=== PATIENT | female | born 1985 | race Caucasian/White ===

== ENCOUNTER → 2023-10-11 08:54 | Outpatient (CLI) | payer OTHER, SELFPAY ==
--- NOTE | 2023-10-11 | DI.MRI.S_ITS ---
PROCEDURE: MR LUMBAR SPINE WO CON INDICATIONS: LUMBAR SCIATICA TECHNIQUE: Noncontrast sagittal T1 spin echo and T2 fast echo, sagittal STIR, and T2 fast spin echo through the lumbar spine. In cases with scoliosis, additional coronal T2 fast spin echo may be performed. COMPARISON: None. FINDINGS: Image quality: Excellent. Alignment and Curvature: There is normal bony alignment. Bone Marrow: Marrow is of normal overall signal. No acute vertebral body compression fractures. Spinal Cord: Conus medullaris terminates at the L1 level. Visualized cord demonstrates normal signal and size. Paraspinous Soft Tissues: No paravertebral masses. T11-12: Mild, broad-based posterior disc bulge, slight height loss, and desiccation at this level slightly indents on the anterior CSF. T12-L1: Normal appearance. L1-L2: Normal appearance. L2-L3: Very minor circumferential disc bulge without height loss or desiccation. L3-L4: Minor circumferential disc bulge with slight posterior disc height loss without desiccation. L4-L5: Normal appearance. L5-S1: Mild disc desiccation and mild broad-based posterior disc bulge. IMPRESSION: No focal disc bulge to cause clinically significant central canal or foraminal stenosis. No significant facet arthropathy. Dictated by: Marlene Villa M.D. on 10/11/2023 at 13:11 Approved by: Marlene Villa M.D. on 10/11/2023 at 13:18
== END ==
LOC: MRI 08:56
PROVIDERS: Referring Provider Physical Medicine & Rehabilitation Pain Medicine; Visit Provider Physical Medicine & Rehabilitation Pain Medicine
DX: M16.11 Unilateral primary osteoarthritis, right hip (principal); M51.34 Other intervertebral disc degeneration, thoracic region; M51.37 Other intervertebral disc degeneration, lumbosacral region
CPT/HCPCS: 72148

== ENCOUNTER 2024-02-28 13:31 | Emergency (ER) | payer OTHER, SELFPAY ==
[2024-02-28 13:33] VITALS: BP 140/81; PULSE 82; RESP 18; TEMP 36.4; O2SAT 100; BMI 28.1
--- NOTE | 2024-02-28 13:37 | DI.RAD.S_ITS ---
PROCEDURE: XR SHOULDER RT MIN 2V INDICATIONS: shoulder pain TECHNIQUE: 3 views of the shoulder were acquired. COMPARISON: None. FINDINGS: Bones: No fractures or dislocations. Normal alignment. Acromioclavicular and coracoclavicular intervals are maintained. No suspicious bony lesions. Visualized ribs appear intact. Soft tissues: No suspicious soft tissue calcifications. IMPRESSION: No acute bony abnormality. No significant degenerative changes. Dictated by: Gian Garrido M.D. on 02/28/2024 at 14:31 Approved by: Gian Garrido M.D. on 02/28/2024 at 14:31
--- NOTE | 2024-02-28 13:53 | ED_ITS ---
HPI - Extremity Problem <Serafin Shetty PA-C - Last Filed: 02/28/24 14:36> General Chief complaint: Extremity Problem,Nontraumatic Stated complaint: right shoulder pain Time Seen by Provider: 02/28/24 13:35 Source: patient Mode of arrival: Ambulatory History of Present Illness HPI Narrative: This is a 39-year-old female presents emergency department due to Right trapezius pain for the last 4 days. She states that she has a history of this and has a pinched nerve. She states that 4 days ago she woke up from sleeping and noticed the right trapezius pain which radiates into her right upper extremity as well as partially upper neck. She denies any falls or trauma to the area but does state that she works out regularly for her jobs in the . She reports some paresthesias going down her right upper extremity as well. Denies any slurred speech, nausea, vomiting, facial drooping, muscle of the conscious, or any other concerning signs or symptoms. Related Data Previous Rx's Medication Instructions Recorded cyclobenzaprine 10 mg tablet 10 mg PO TID PRN muscle spasm #30 02/28/24 tabs methylprednisolone 4 mg tablets in See Rx Instructions PO .COMPLEX 02/28/24 a dose pack (Medrol (Demarcus)) #21 ea Allergies Allergy/AdvReac Type Severity Reaction Status Date / Time No Known Drug Allergies Allergy Verified 02/28/24 13:33 Review of Systems <Serafin Shetty PA-C - Last Filed: 02/28/24 14:36> Review of Systems Narrative: GENERAL: Denies chills, fatigue, malaise, fever, sweats. HEENT: Denies sinus pain, ear pain, sore throat, difficulty swallowing, dizziness. RESPIRATORY: Denies dyspnea, cough, wheezing, hemoptysis, sputum. CARDIOVASCULAR: Denies chest pain, palpitations, orthopnea, edema, GASTROINTESTINAL: Denies nausea, vomiting, abdominal pain, diarrhea, constipati on, melena. : Denies dysuria, frequency, incontinence, hematuria, urinary retention. MUSCULOSKELETAL: Reports right shoulder pain SKIN: Denies rash, skin lesions, or other NEUROLOGIC: Denies weakness, headache, numbness, change in speech, confusion, seizures, incoordination. PSYCHIATRIC: No concerning psychosocial issues. 12 point review of systems is negative except for those stated above Patient History <Serafin Shetty PA-C - Last Filed: 02/28/24 14:36> Social History Smoking Status: Never smoker Smoking Status: Never smoker Substance Use Type: does not use Exam <Serafin Shetty PA-C - Last Filed: 02/28/24 14:36> Narrative Exam Narrative: GENERAL: Well-developed patient, in mild distress. HEAD: Atraumatic. Normocephalic. EYES: Pupils equal round and reactive. Extraocular motions intact. No scleral icterus. No injection or drainage. ENT: Nose without bleeding, purulent drainage. Throat without erythema, tonsillar hypertrophy or exudate. Airway patent. NECK: Trachea midline. Non tender EXTREMITIES: tenderness to palpation to the right trapezius area, increased pain with active range of motion of the shoulder NEURO: AOx3. cranial nerves 2-12 intact SKIN: No rash or erythema of visible areas Initial Vital Signs Initial Vital Signs: Vital Signs Temperature 97.5 F L 02/28/24 13:33 Pulse Rate 82 02/28/24 13:33 Respiratory Rate 18 02/28/24 13:33 Blood Pressure 140/81 02/28/24 13:33 Pulse Oximetry 100 02/28/24 13:33 Oxygen Delivery Method Room Air 02/28/24 13:33 <Matthew Myers MD - Last Filed: 02/28/24 16:09> Initial Vital Signs Initial Vital Signs: Vital Signs Temperature 97.5 F L 02/28/24 13:33 Pulse Rate 82 02/28/24 13:33 Respiratory Rate 18 02/28/24 13:33 Blood Pressure 140/81 02/28/24 13:33 Pulse Oximetry 100 02/28/24 13:33 Oxygen Delivery Method Room Air 02/28/24 13:33 Course <Serafin Shetty PA-C - Last Filed: 02/28/24 14:36> Orders Ordered: ED Orders 02/28/24 13:37 XR shoulder RT min 2V Stat Discontinued Medications Ketorolac Tromethamine (Ketorolac 30 Mg/Ml Vial) 15 mg IM NOW ONE Stop: 02/28/24 14:03 Last Admin: 02/28/24 14:12 Dose: 15 mg Documented By: BS Vital Signs Vital signs: Vital Signs - 8 hr 02/28/24 13:33 02/28/24 14:43 Temperature 97.5 F L 98 F Pulse Rate 82 67 Respiratory Rate 18 14 Blood Pressure 140/81 119/80 Pulse Oximetry 100 100 Oxygen Delivery Method Room Air Room Air <Matthew Myers MD - Last Filed: 02/28/24 16:09> Orders Ordered: ED Orders 02/28/24 13:37 XR shoulder RT min 2V Stat Discontinued Medications Ketorolac Tromethamine (Ketorolac 30 Mg/Ml Vial) 15 mg IM NOW ONE Stop: 02/28/24 14:03 Last Admin: 02/28/24 14:12 Dose: 15 mg Documented By: ABDIAS Vital Signs Vital signs: Vital Signs - 8 hr 02/28/24 13:33 02/28/24 14:43 Temperature 97.5 F L 98 F Pulse Rate 82 67 Respiratory Rate 18 14 Blood Pressure 140/81 119/80 Pulse Oximetry 100 100 Oxygen Delivery Method Room Air Room Air MDM - Extremity (Nontraumatic) <Serafin Shetty PA-C - Last Filed: 02/28/24 14:36> Imaging Data Extremity x-ray #1: Radiologist's Impression: [place] [address] XRay Report Signed Patient: Romana Al MR#: [id number] : 1985 Acct:[id number] Age/Sex: 39 / F Date of Service: 02/28/24 Loc: ED Accession Number: [id number] Procedure: XR shoulder RT min 2V Ordering Provider: Serafin Shetty PA-C PROCEDURE: XR SHOULDER RT MIN 2V INDICATIONS: shoulder pain TECHNIQUE: 3 views of the shoulder were acquired. COMPARISON: None. FINDINGS: Bones: No fractures or dislocations. Normal alignment. Acromioclavicular and coracoclavicular intervals are maintained. No suspicious bony lesions. Visualized ribs appear intact. Soft tissues: No suspicious soft tissue calcifications. IMPRESSION: No acute bony abnormality. No significant degenerative changes. Dictated by: Gian Garrido M.D. on 02/28/2024 at 14:31 Approved by: Gian Garrido M.D. on 02/28/2024 at 14:31 [facility] Narrative Medical decision making narrative: ED course: this is a 39-year-old female presents to the emergency department due to suspected right trapezius strain. X-ray unremarkable. Patient was treated with Toradol, muscle relaxants, and Medrol Dosepak. recommended follow up with primary care provider for possible advanced imaging and further treatment if symptoms continue. no significant weakness noted on exam that would necessitate any kind of emergent MRI. CC: Right trapezius pain Complicating co-morbidities: None Data collected from: Previous notes Medical records reviewed: Patient was not been to this emergency department the past. No other medical records to review. Differential considered, but not limited to: trapezius strain, cervical spondylosis, soft tissue injury, fracture Exam documented above, pertinent findings include: some pain with palpation with active range of motion of the shoulder, no significant weakness noted on exam Lab Test results independently reviewed as above. Pertinent findings: none obtained Imaging studies independently reviewed: right shoulder x-ray negative for fractures Scores Used: None MIPS Elements: None Consultations: None Treatments: IM Toradol Re-evaluations: none Discussion: Discussed plan with the patient was comfortable with the plan Diagnosis: right shoulder strain Disposition: see below, along with detailed discharge instructions that have been reviewed with patient as well as indications for ED re-evaluation and additional outpatient follow up Discharge Plan Departure Patient Disposition: Home Clinical Impression: Right shoulder strain Activity Restrictions/Additional Instructions: Thank you for coming to the [facility] Emergency Department today. the Toradol as well as muscle relaxants and steroids should help with the pain. You may speak with the primary care provider outpatient for possible further advanced imaging if the pain is to continue. I also recommend light activity and movement as well as massage to help with your symptoms. Please return to the emergency department if you develop any Facial drooping, slurred speech, inability to use your right arm due to weakness. or any other concerning signs or symptoms. I hope you feel better soon. Please follow up with your primary care provider within a week if your symptoms continue. If you do not have a primary care provider please contact the [facility] Resource line at [phone]. They will ask some questions about your medical history and help you get set up with a provider in the community. Prescriptions: New methylprednisolone [Medrol (Demarcus)] 4 mg tablets,dose pack See Rx Instructions .ROUTE .COMPLEX Qty: 21 0RF Rx Instructions: orally per package directions cyclobenzaprine 10 mg tablet 10 mg PO TID PRN (Reason: muscle spasm) Qty: 30 0RF Referrals: Summer Goldman, [Primary Care Provider] - Stand Alone Forms: Patient Portal/API ED Sign-out <Matthew Myers MD - Last Filed: 02/28/24 16:09> Cosign ED Attending Jany Attestation: I was immediately available in the department for consultation. ?This documentation has been reviewed and I agree with assessment and plan. Supervised by Matthew Myers MD
[2024-02-28] MEDS: KETOROLAC 30 MG/ML VIAL 15 MG IM (14:12)
[2024-02-28 14:43] VITALS: BP 119/80; PULSE 67; RESP 14; TEMP 36.6; O2SAT 100
== END 2024-02-28 14:40 | disposition home or self-care (01) ==
PROVIDERS: Emergency Provider Physician Assistant Medical
DX: S46.911A Strain of unspecified muscle, fascia and tendon at shoulder and upper arm level, right arm, initial encounter (principal); X58.XXXA Exposure to other specified factors, initial encounter
CPT/HCPCS: 73030; 96372; 99283; J1885